=== PATIENT | female | born 1995 | race Asian ===

== ENCOUNTER 2022-04-27 09:25 | Outpatient (CLI) | payer BC, OTHER ==
[2022-04-28 12:33] LABS: BILIRUBIN,URINE NEGATIVE (NEGATIVE); GLUCOSE, URINE (UA) NEGATIVE (NEGATIVE); KETONES,URINE (UA) NEGATIVE (NEGATIVE); LEUKOCYTE ESTERASE, URINE NEGATIVE (NEGATIVE); NITRITE,URINE NEGATIVE (NEGATIVE); OCCULT BLOOD,URINE TRACE-INTA (NEGATIVE); PROTEIN,URINE NEGATIVE (NEGATIVE); UROBILINOGEN,URINE 0.2 (NORMAL) E.U./dL (NORMAL)
[2022-04-28 12:36] LABS: BACTERIA,URINE Few /HPF (None Seen); CLARITY,URINE CLEAR (CLEAR); RBC,URINE 0-5 /HPF (0-5); SQUAMOUS EPITHELIAL CELL,UR FEW Squamous (<= Few); WBC,URINE 0-3 /HPF (0-5)
== END 2022-04-27 23:59 | disposition home or self-care (01) ==
LOC: LAB.WC 09:25
PROVIDERS: ATTEND Obstetrics & Gynecology
DX: Z34.90 Encounter for supervision of normal pregnancy, unspecified, unspecified trimester (principal)
CPT/HCPCS: 81001; 87086

== ENCOUNTER 2022-04-29 13:52 | Outpatient (CLI) | payer BC, OTHER ==
[2022-04-29 14:15] LABS: BASOPHILS % (AUTO) 0.4 %; EOSINOPHILS # (AUTO) 0.1 10^3/uL (0.0-0.7); EOSINOPHILS % (AUTO) 0.9 %; HCT - HEMATOCRIT 37.9 % (37.0-47.0); HGB - HEMOGLOBIN 12.8 g/dL (12.0-16.0); LYMPHOCYTES # (AUTO) 2.2 10^3/uL (1.5-3.5); LYMPHOCYTES % (AUTO) 28.1 %; MEAN CORPUSCULAR HEMOGLOBIN 32.3 pg (27.0-31.0); MEAN CORPUSCULAR HGB CONC 33.8 g/dL (32.0-36.0); MEAN CORPUSCULAR VOLUME 95.7 fL (81.0-99.0); MEAN PLATELET VOLUME 8.5 fL (7.9-10.8); MONOCYTES # (AUTO) 0.7 10^3/uL (0.0-1.0); MONOCYTES % (AUTO) 9.2 %; NEUTROPHILS # (AUTO) 4.7 10^3/uL (1.5-6.6); PLT - PLATELET COUNT 338 10^3/uL (130-450); RED BLOOD COUNT 3.96 10^6/uL (4.20-5.40); RED CELL DISTRIBUTION WIDTH 12.7 % (12.0-15.0); WHITE BLOOD COUNT 7.7 x10^3/uL (4.8-10.8)
[2022-04-30 06:10] LABS: HBsAG SCREEN Negative (Negative); HCV AB <0.1 s/co ratio (0.0-0.9); RPR Non Reactive (Non Reactive)
[2022-04-30 08:10] LABS: HIV SCREEN 4TH GENERATION Non Reactive (Non Reactive); VARICELLA-ZOSTER AB IGG 182 index (Immune >165)
== END 2022-04-29 13:53 | disposition home or self-care (01) ==
LOC: LAB 13:52
PROVIDERS: ATTEND Nurse Practitioner
DX: Z34.90 Encounter for supervision of normal pregnancy, unspecified, unspecified trimester (principal)
CPT/HCPCS: 36415; 85025; 86592; 86762; 86787; 86803; 86850; 86900; 86901; 87340; 87389

== ENCOUNTER 2022-05-09 06:38 | Outpatient (CLI) | payer BC, OTHER ==
--- NOTE | 2022-05-09 09:21 | Ultrasound Report ---
PROCEDURE: OB First Trimester INDICATIONS: POSITIVE TEST OUTSIDE/PRIOR DATING DATA: Last menstrual period (LMP): Unknown. LMP-based estimated date of delivery (BERKLEY): Not applicable. First dating scan (date and location): Current study, 05/09/2022. Estimated date of delivery (BERKLEY) from first dating scan: 12/04/2022. TECHNIQUE: Real-time scanning was performed of the fetus and maternal pelvic organs, with image documentation. COMPARISON: None FINDINGS: The uterus contains a fundal gestational sac. No subchorionic hemorrhage. The cervix is closed. Ovari es are within normal limits. A corpus luteum is not identified. There is a single pole with an average crown-rump length of 3.25 cm corresponding to a 10 week 1 day +/- 6 days gestation. There is detectable cardiac activity and the fetus at a rate of 158 bpm. A definite yolk sac was not identified. IMPRESSION: Single living intrauterine with a gestational age of 10 weeks 1 day and estimated due date of 12/04/2022. Reviewed by: Conchis Mclaughlin MD on 05/09/2022 9:20 AM PST Approved by: Conchis Mclaughlin MD on 05/09/2022 9:20 AM PST Station ID: [id number]
== END 2022-05-09 06:39 | disposition home or self-care (01) ==
LOC: DI 06:38
PROVIDERS: ATTEND Nurse Practitioner
DX: Z34.91 Encounter for supervision of normal pregnancy, unspecified, first trimester (principal)

== ENCOUNTER 2022-05-30 08:00 | Outpatient (CLI) | payer BC, OTHER ==
[2022-05-30 23:43] LABS: CHLAMYDIA TRACHOMATIS DNA NEGATIVE (NEGATIVE); NEISSERIA GONORRHOEAE DNA NEGATIVE (NEGATIVE); TRICHOMONAS VAGINALIS DNA NEGATIVE (NEGATIVE)
== END 2022-05-30 23:59 | disposition home or self-care (01) ==
LOC: LAB.WC 08:00
PROVIDERS: ATTEND Obstetrics & Gynecology
DX: Z11.3 Encounter for screening for infections with a predominantly sexual mode of transmission (principal)
CPT/HCPCS: 87491; 87591; 87661

== ENCOUNTER 2022-06-01 09:54 | Outpatient (CLI) | payer BC, OTHER | END 2022-06-01 09:55 | disposition home or self-care (01) | LOC: LAB 09:54 | PROVIDERS: ATTEND Obstetrics & Gynecology | DX: O09.91 Supervision of high risk pregnancy, unspecified, first trimester (principal); Z3A.13 13 weeks gestation of pregnancy | CPT/HCPCS: 36415 ==

== ENCOUNTER 2022-09-06 08:40 | Outpatient (CLI) | payer OTHER ==
[2022-09-06 10:10] LABS: HGB - HEMOGLOBIN 10.9 g/dL (12.0-16.0); MEAN CORPUSCULAR HEMOGLOBIN 32.3 pg (27.0-31.0); MEAN CORPUSCULAR VOLUME 97.9 fL (81.0-99.0); MEAN PLATELET VOLUME 8.4 fL (7.9-10.8); RED BLOOD COUNT 3.37 10^6/uL (4.20-5.40); RED CELL DISTRIBUTION WIDTH 12.8 % (12.0-15.0); WHITE BLOOD COUNT 10.4 x10^3/uL (4.8-10.8)
== END 2022-09-06 08:41 | disposition home or self-care (01) ==
LOC: LAB 08:40
PROVIDERS: ATTEND Obstetrics & Gynecology
DX: O09.91 Supervision of high risk pregnancy, unspecified, first trimester (principal); Z36.89 Encounter for other specified antenatal screening
CPT/HCPCS: 36415; 82950; 85027

== ENCOUNTER 2022-09-13 08:00 | Outpatient (CLI) | payer OTHER ==
[2022-09-13 08:26] LABS: GTT GLUCOSE,FASTING 89 mg/dL (70-100)
== END 2022-09-13 08:01 | disposition home or self-care (01) ==
LOC: LAB 08:00
PROVIDERS: ATTEND Obstetrics & Gynecology
DX: O99.810 Abnormal glucose complicating pregnancy (principal)
CPT/HCPCS: 36415; 82951; 82952

== ENCOUNTER 2022-11-10 12:36 | Day surgery (SDC) | payer OTHER ==
--- NOTE | 2022-11-10 11:01 | ANESTHESIA ---
Pre-Anesthesia VS, & Labs - Diagnosis cerclage requiring removal, not tolerated in office - Procedure cerclage removal under anesthesia - NPO Last Fluid Intake: half glass milk Last Food Intake: half scone at 0730 - Is Patient ?: Yes - Lab Results Lab results reviewed: Yes Anes History & Medical History - Anesthetic History Anesthesia Complications: reports: No previous complications Family history of Anesthesia Complications: Denies Family history of Malignant Hyperthermia: Denies - Medical History Cardiovascular: reports: None Pulmonary: reports: None Gastrointestinal: reports: GERD (rare) Musculoskeletal: reports: None Endocrine/Autoimmune: reports: None Blood Disorders: reports: None Psychosocial: reports: No issues indicated History of Cancer?: No - Surgical History Eyes Ears Nose Throat (EENT): reports: Tonsil/Adenoidectomy Gynecologic: reports: Other (cerclage placement) Exam General: Alert, Oriented x3 Dental: WNL Mouth Openin Fingerbreadth Neck Mobility: Normal Mallampati classification: II Thyromental Distance: 4-6 cm Respiratory: Lungs clear, Normal breath sounds, No respiratory distress Cardiovascular: Regular rate Neurological: Normal speech Mental/Cognitive Status: Alert/Oriented X3, Normal for patient Cognitive Status: Within normal limits Plan Anesthesia Type: Spinal Consent for Procedure(s) Verified and Reviewed: Yes Code Status: Attempt Resuscitation ASA classification: 2-Mild systemic disease Is this case an emergency?: No
--- NOTE | 2022-11-10 11:21 | HISTORY & PHYSICAL EXAMINATION ---
Admit History - Visit Reason Visit Reason: Other (Cer) - : 2 Parity: 1 Risk/History: positive: labor <37 weeks Complications This : positive: Other (Cervical insufficiency) - Mother's Labs Mother's Blood Type: positive: B Mother's RH: positive: Positive GBS: positive: Other (Unknown) Rubella Status: positive: Non-immune - Other Maternal History Other Maternal History: HPI: 27-year-old -0-0-1 at 36 weeks 4 days gestation presenting for contractions vaginal bleeding as well as cerclage removal not tolerate in the office. She has good movement. Denies loss of fluid. No MCGILL/BV or RUQP. Denies nausea and vomiting. Denies urinary urgency or dysuria. All other symptoms reviewed and were negative except per HPI. Course LMP: unknown BERKLEY by LMP:unknown Initial U/S:05/09/22 @ 10w1d FINAL BERKLEY:12/04/2022 by US Pre- Weight:156 BMI: 25.27 B pos/Rubella- non immune VZV:immune Genetic testing: MaterniT-21- Negative/ XX FAS:07/13/2022 @ 19w3d EFW 272 25%ile, CL 35.7, 3VC, Marginal placental insertion 1.4cm from edge, MILLICENT WNL Suboptimal view of RVOT Glucola 09/06- 1HR 161 09/13- 3HR 89 170, 168, 116 Influenza: Received in June at [facility] TDAP given 09/15 COVID: Vaccinated x 2, encouraged booster GBS @ ___ wks HSV: Denies in self or partner Breast pump Rx: 09/15 MOD: pp contraception:OCPs vs Nexplanon pap: 2019 normal Initial GC/CT:Negatvie PMH Cervical incompetence PSH Cervical cerclage OB History -0-0-1 1. 08/20/2022, 32 weeks, , cervical incompetence SH Denies tobacco, alcohol, drugs Family History Adopted Allergies No known drug allergies Medications vitamins Mariela Physical exam: General: Alert, oriented, no acute distress Head: Normal cephalic atraumatic Eyes: PERRLA, extraocular motions intact. Respiratory: Normal rate of respiration. No accessory muscle use, normal respiratory effort. Cardiovascular: Regular rate and rhythm Abdomen: Gravid, nontender, nondistended Extremities: Normal range of motion Neuro: Oriented x3. Normal movements Psych: Appropriate mood and affect. Normal judgment and insight SVE: Cerclage palpated in place. Small amount of bleeding from attempted cerclage removal FHT: 135 bpm baseline, moderate variability, accelerations present, no decelerations [place]: Irritable with occasional contraction Plan 27-year-old -0-0-1 at 36 weeks 4 days gestation here for cerclage removal 1. Cervical incompetence -Plan for for removal of cerclage with spinal anesthesia. -Unable to remove in clinic today due to patient discomfort. 2. 36 weeks gestation 3. contractions -Likely from attempted removal. Will monitor postoperatively.
[2022-11-10 11:34] LABS: BASOPHILS % (AUTO) 0.5 %; EOSINOPHILS # (AUTO) 0.1 10^3/uL (0.0-0.7); EOSINOPHILS % (AUTO) 0.7 %; HGB - HEMOGLOBIN 10.9 g/dL (12.0-16.0); LYMPHOCYTES # (AUTO) 2.3 10^3/uL (1.5-3.5); LYMPHOCYTES % (AUTO) 28.1 %; MEAN CORPUSCULAR HEMOGLOBIN 29.6 pg (27.0-31.0); MEAN CORPUSCULAR VOLUME 89.7 fL (81.0-99.0); MEAN PLATELET VOLUME 9.7 fL (7.9-10.8); MONOCYTES # (AUTO) 0.7 10^3/uL (0.0-1.0); MONOCYTES % (AUTO) 8.3 %; NEUTROPHILS % (AUTO) 61.9 %; PLT - PLATELET COUNT 328 10^3/uL (130-450); RED BLOOD COUNT 3.68 10^6/uL (4.20-5.40); RED CELL DISTRIBUTION WIDTH 13.8 % (12.0-15.0); WHITE BLOOD COUNT 8.1 x10^3/uL (4.8-10.8)
[2022-11-10] MEDS: LACTATED RINGERS 1,000 ML IV SCH (11:43)
[~2022-11-10 12:36] MED LIST: ATROPINE ABBOJECT 1 MG/10 ML SYRINGE IVP PRN; HYDROmorphone 0.5 MG/0.5 ML SYRINGE IVP PRN; METOCLOPRAMIDE 10 MG/2 ML VIAL IVP PRN; MORPHINE 2 MG/ML CARPUJECT IVP PRN; NALOXONE 0.4 MG/ML VIAL IVP PRN; ONDANSETRON 4 MG/2 ML VIAL IVP PRN; SODIUM CHLORIDE FLUSH 0.9% 10 ML SYRINGE IVP PRN; ePHEDrine 50 MG/ML VIAL IVP PRN; fentaNYL 100 MCG/2 ML VIAL IVP PRN
[2022-11-10] MEDS ORDERED: PHENYLEPHRINE 10 MG/ML VIAL ONE (12:43)
[2022-11-10] MEDS ORDERED: fentaNYL 100 MCG/2 ML VIAL ONE (12:43)
[2022-11-10] MEDS ORDERED: BUPIVACAINE 0.5% PF 10 ML VIAL ONE (12:43)
--- NOTE | 2022-11-10 14:36 | OPERATIVE REPORT ---
Operative Report - General Planned Procedure: Cerclage removal Pre-Op Diagnosis: Cervical incompetence Procedure Performed: Cerclage removal Post Op Diagnosis: Same - Procedure Note Primary Surgeon: Gideon Hendrix MD Anesthesia Provider: Nancy Mercer CRNA Anesthesia Technique: Spinal Pathology: None Estimated Blood Loss (mL): 50 Urine Output (mL): 20 Complications: None - Other Other Information/Narrative: Patient was taken the operating room where spinal anesthesia was obtained. She was placed in the dorsal high lithotomy position and weighted speculum was used to visualize the cervix. Using a right angle tractor, the cervix was exposed and the cerclage was grasped with a ring forcep. The knotted Mersilene tape was walked to the junction of the cervix and vagina where it was incised with a pair of scissors. At that time, was noted that both strands were cut. No additional knot was palpated. As I felt there was still a segment of tissue present, I called Dr. Esquivel to come assist. She also try to find a knot of material to graft, and we were unable despite retraction, palpation, and suction. We used ultrasound to assess the cervix, and there appeared to be a portion of the M ersilene tape or other hyperechoic material. Despite this, we found a dimple of tissue where the Mersilene tape was present, but no not or any tissue to grasp. As he felt would not be able to remove the remaining suture while , the procedure was completed and patient was returned to dorsal supine position. Counts were correct and patient was taken to recovery room in good condition. I felt it is likely that a segment of the tape is still in place, so I contacted [facility] who placed the cerclage who recommended assessing the cervix for dilation, which feels like it did open up after the procedure, however we recommended she be assessed by [facility] tomorrow for further evaluation prior to labor.
--- NOTE | 2022-11-10 14:38 | ANESTHESIA POST OP EVALUATION ---
Anesthesia Post Eval - Post Anesthesia Eval Vitals: Last Vital Signs Temp 36.6 C 11/10/22 14:20 Pulse 86 11/10/22 14:30 Resp 16 11/10/22 14:30 BP 119/70 11/10/22 14:30 Pulse Ox 100 11/10/22 14:30 O2 Flow Rate CV Function Including HR & BP: Stable Pain Control: Satisfactory Nausea & Vomiting: Negative Mental Status: Baseline Respiratory Status: Airway Patent Hydration Status: Satisfactory Anesthesia Complications: None
[2022-11-10 15:46] VITALS: BP 118/78
--- NOTE | 2022-11-11 19:59 | Labor Flowsheet ---
Labor Flowsheet Datetime Report Generated by CPN: 11/11/2022 19:58 Datetime: 11/11/2022 10:01 VITAL SIGNS NBP Sys/Rukhsana/Mean (mmHg): 105 : 65 : 73 Pulse: 86 Datetime: 11/10/2022 16:09 SpO2 (%): 100 Datetime: 11/10/2022 16:07 VAGINAL EXAM Dilatation (cm): 1.5 Effacement (%): 0 Station: -3 Exam by: Dr. Hendrix
== END 2022-11-10 16:45 | disposition home or self-care (01) ==
LOC: SDS 12:36 → FBP 14:29 → SDS 16:45
PROVIDERS: ATTEND Obstetrics & Gynecology
DX: O34.33 Maternal care for cervical incompetence, third trimester (principal); O46.93 Antepartum hemorrhage, unspecified, third trimester; Z3A.36 36 weeks gestation of pregnancy
CPT/HCPCS: 59025; 59871; 85025; 86850; 86900; 86901; J7120; 99215

== ENCOUNTER 2022-11-11 08:00 | Outpatient (CLI) | payer OTHER | END 2022-11-11 23:59 | disposition home or self-care (01) | LOC: LAB.WC 08:00 | PROVIDERS: ATTEND Obstetrics & Gynecology | DX: O09.93 Supervision of high risk pregnancy, unspecified, third trimester (principal) | CPT/HCPCS: 87797 ==